=== PATIENT | female | born 1970 | race Caucasian/White ===

== ENCOUNTER 2018-05-06 22:58 | Emergency (ER) | payer SELFPAY ==
--- NOTE | 2018-05-06 23:46 | EDM.PDOC ---
ED HPI GENERAL MEDICAL PROBLEM - General Chief Complaint: General Stated Complaint: MEDICAL CLEARANCE Time Seen by Provider: 05/06/18 23:46 Source of Information: Reports: Patient - History of Present Illness INITIAL COMMENTS - FREE TEXT/NARRATIVE: HISTORY AND PHYSICAL: History of present illness: [Patient presents for medical screening exam She was caught shoplifting today and was out shopping and high-heeled boots however tonight she complains of left foot pain stating she has a known fracture with surgery scheduled next week. She also states she has history of DVT with left calf pain which she is Homans positive on the left No fever nausea vomiting chills sweats ] Review of systems: As per history of present illness and below otherwise all systems reviewed and negative. Past medical history: As per history of present illness and as reviewed below otherwise noncontributory. Surgical history: As per history of present illness and as reviewed below otherwise noncontributory. Social history: No reported history of drug or alcohol abuse. Family history: As per history of present illness and as reviewed below otherwise noncontributory. Physical exam: HEENT: Atraumatic, normocephalic, pupils reactive, negative for conjunctival pallor or scleral icterus, mucous membranes moist, throat clear, neck supple, nontender, trachea midline. Lungs: Clear to auscultation, breath sounds equal bilaterally, chest nontender. Heart: S1S2, regular, negative for clicks, rubs, or JVD. Abdomen: Soft, nondistended, nontender. Negative for masses or hepatosplenomegaly. Negative for costovertebral tenderness. Pelvis: Stable nontender. Genitourinary: Deferred. Rectal: Deferred. Extremities: Atraumatic, negative for cords or calf pain on the right she does however have left calf pain . Neurovascular unremarkable. Neuro: Awake, alert, oriented. Cranial nerves II through XII unremarkable. Cerebellum unremarkable. Motor and sensory unremarkable throughout. Exam nonfocal. 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 left leg Pain Score (Numeric/FACES): 8 - Related Data Allergies Allergy/AdvReac Type Severity Reaction Status Date / Time No Known Allergies Allergy Verified 05/06/18 23:10 Home Meds: Home Meds traMADol [Ultram] 50 mg PO BID 05/06/18 [History] Past Medical History - Past Surgical History GI Surgical History: Reports: Cholecystectomy, Other (See Below) Female Surgical History: Reports: Section Musculoskeletal Surgical History: Reports: Other (See Below) ED ROS GENERAL - Review of Systems Review Of Systems: See Below ED EXAM, GENERAL - Physical Exam Exam: See Below Course - Vital Signs Last Recorded V/S: Last Vital Signs Temp 96.2 F 05/06/18 23:02 Pulse 111 H 05/06/18 23:02 Resp 20 05/06/18 23:02 BP 172/116 H 05/06/18 23:02 Pulse Ox 98 05/06/18 23:02 Departure - Departure Time of Disposition: 00:22 Disposition: Home, Self-Care 01 Condition: Good Clinical Impression: Encounter for medical screening examination - Discharge Information Referrals: PCP,None [Primary Care Provider] - Forms: ED Department Discharge Additional Instructions: The following information is given to patients seen in the emergency department who are being discharged to home. This information is to outline your options for follow-up care. We provide all patients seen in our emergency department with a follow-up referral. The need for follow-up, as well as the timing and circumstances, are variable depending upon the specifics of your emergency department visit. If you don't have a primary care physician on staff, we will provide you with a referral. We always advise you to contact your personal physician following an emergency department visit to inform them of the circumstance of the visit and for follow-up with them and/or the need for any referrals to a consulting specialist. The emergency department will also refer you to a specialist when appropriate. This referral assures that you have the opportunity for follow-up care with a specialist. All of these measure are taken in an effort to provide you with optimal care, which includes your follow-up. Under all circumstances we always encourage you to contact your private physician who remains a resource for coordinating your care. When calling for follow-up care, please make the office aware that this follow-up is from your recent emergency room visit. If for any reason you are refused follow-up, please contact the [facility] emergency department at and asked to speak to the emergency department charge nurse.
--- NOTE | 2018-05-07 00:19 | US ---
INDICATION: left leg pain TECHNIQUE: Ultrasound venous duplex left lower extremity. COMPARISON: None. FINDINGS: The left common femoral, superficial femoral, deep femoral, popliteal, posterior tibial, and greater saphenous veins are fully compressible normal waveforms. The contralateral right common femoral vein is also compressible with normal waveform. No masses evident. IMPRESSION: Normal ultrasound of the left lower extremity veins. Dictated by: Naeem Villagomez MD @ 05/07/2018 00:18:37 (Electronically Signed)
[2018-05-07] MEDS ORDERED: traMADol 50 MG Tab PO ONE (00:36)
[2018-05-07 00:37] VITALS: BP 163/104
== END 2018-05-07 00:42 | disposition home or self-care (01) ==
LOC: MW.ED 22:58
DX: Z13.9 Encounter for screening, unspecified (principal)
CPT/HCPCS: 93971; 99284; A9270; 99282

== ENCOUNTER 2018-09-29 19:58 | Emergency (ER) | payer SELFPAY ==
--- NOTE | 2018-09-29 20:14 | EDM.PDOC ---
ED HPI GENERAL MEDICAL PROBLEM - General Stated Complaint: PT HAS BACK PAIN Time Seen by Provider: 09/29/18 20:02 Source of Information: Reports: Patient History Limitations: Reports: No Limitations - History of Present Illness INITIAL COMMENTS - FREE TEXT/NARRATIVE: HISTORY AND PHYSICAL: History of present illness: Patient is a 48-year-old female presents to the ED today with concern of low back pain 3 days. Patient states she has tried ibuprofen [id number] without relief of symptoms. Patient states that there is a chance she could be . Patient denies any loss or retention of bowel and bladder function. Patient denies saddle anesthesia. Patient denies any trauma or injury to the back and states that she woke up with it being sore. Patient denies fever, chills, chest pain, shortness of breath, or cough. Denies headache, neck stiff ness, change in vision, syncope, or near syncope. Denies nausea, vomiting, abdominal pain, diarrhea, constipation, or dysuria. Has not noted any blood in urine or stool. Patient has been eating and drinking appropriately. Review of systems: As per history of present illness and below otherwise all systems reviewed and negative. Past medical history: As per history of present illness and as reviewed below otherwise noncontributory. Surgical history: As per history of present illness and as reviewed below otherwise noncontributory. Social history: See social history for further information Family history: As per history of present illness and as reviewed below otherwise noncontributory. Physical exam: General: Patient is alert, oriented, and in no acute distress. Patient sitting comfortably on exam table. HEENT: Atraumatic, normocephalic, pupils equal and reactive bilaterally, negative for conjunctival pallor or scleral icterus, mucous membranes moist, TMs normal bilaterally, throat clear, neck supple, nontender, trachea midline. No drooling or trismus noted. No meningeal signs. No hot potato voice noted. Lungs: Clear to auscultation, breath sounds equal bilaterally, chest nontender. Heart: S1S2, regular rate and rhythm without overt murmur Abdomen: Soft, nondistended, nontender. Negative for masses or hepatosplenomegaly. Negative for costovertebral tenderness. Pelvis: Stable nontender. Genitourinary: Deferred. Rectal: Deferred. Skin: Intact, warm, dry. No lesions or rashes noted. Extremities/musculoskeletal: Atraumatic, negative for cords or calf pain. Neurovascular unremarkable. Straight leg raise bilaterally intact. Tip/toe and heel gate intact. Patellar reflex intact. No obvious deformities of the complete spine. No step-offs, point tenderness, or pain to palpation of the complete spine and pint spinous processes. Patient does have full range of motion of the cervical and thoracic spine but does have limited range of motion of thoracic spine due to pain. Neuro: Awake, alert, oriented. Cranial nerves II through XII unremarkable. Cerebellum unremarkable. Motor and sensory unremarkable throughout. Exam nonfocal. Notes: Discussed the importance for follow-up with a primary care provider. Voices understanding and is agreeable to plan of care. Denies any further questions or concerns at this time. Diagnostics: UA, urine hCG, lumbar x-ray Therapeutics: Ibuprofen Prescription: Diclofenac, Bactrim DS Impression: Low back pain, unspecified Urinary Tract Infection Plan: 1. Rest, ice, the affected area. You can apply ice and or heat 15 minutes on, 15 minutes off. 2. Tylenol as directed for pain management or discomfort. Take medication as prescribed. 3. Follow up with the primary care provider as discussed. Return to the ED as needed and as discussed. Definitive disposition and diagnosis as appropriate pending reevaluation and review of above. lower back Pain Score (Numeric/FACES): 10 - Related Data Allergies Allergy/AdvReac Type Severity Reaction Status Date / Time No Known Allergies Allergy Verified 09/29/18 20:25 Home Meds: Home Meds traMADol [Ultram] 50 mg PO BID 05/06/18 [History] Past Medical History HEENT History: Reports: None Cardiovascular History: Reports: Blood Clots/VTE/DVT Respiratory History: Reports: Asthma Gastrointestinal History: Reports: None Genitourinary History: Reports: None PER DIEM REGISTERED NURSE History: Reports: Psychiatric History: Reports: PTSD - Infectious Disease History Infectious Disease History: Reports: Chicken Pox - Past Surgical History GI Surgical History: Reports: Cholecystectomy, Other (See Below) Female Surgical History: Reports: Section Musculoskeletal Surgical History: Reports: Other (See Below) Social & Family History - Family History Family Medical History: Noncontributory - Caffeine Use Caffeine Use: Reports: Coffee, Energy Drinks, Soda ED ROS GENERAL - Review of Systems Review Of Systems: ROS reveals no pertinent complaints other than HPI. ED EXAM, GENERAL - Physical Exam Exam: See Below (see dictation) Course - Vital Signs Last Recorded V/S: Last Vital Signs Temp 36.1 C 09/29/18 20:27 Pulse 101 H 09/29/18 20:27 Resp 18 09/29/18 20:27 BP 166/105 H 09/29/18 20:27 Pulse Ox 94 L 09/29/18 20:27 - Orders/Labs/Meds Orders: Active Orders 24 hr Category Date Time Status CULTURE URINE [RM] Stat Lab 09/29/18 20:37 Received Labs: Laboratory Tests 09/29/18 09/29/18 Range/Units 20:37 20:37 Urine Color YELLOW Urine Appearance SLT CLOUDY Urine pH 5.5 (5.0-8.0) Ur Specific [place] >= 1.030 (1.001-1.035) Urine Protein NEGATIVE (NEGATIVE) mg/dL Urine Glucose (UA) NEGATIVE (NEGATIVE) mg/dL Urine Ketones NEGATIVE (NEGATIVE) mg/dL Urine Occult Blood SMALL H (NEGATIVE) Urine Nitrite POSITIVE H (NEGATIVE) Urine Bilirubin NEGATIVE (NEGATIVE) Urine Urobilinogen 0.2 (<2.0) EU/dL Ur Leukocyte Esterase NEGATIVE (NEGATIVE) Urine RBC NONE SEEN (0-2/HPF) Urine WBC 1-3 (0-5/HPF) Ur Epithelial Cells FEW (NONE-FEW) Urine Bacteria 2+ H (NEGATIVE) Urine Mucus LIGHT (NONE-MOD) Urine HCG, Qual NEGATIVE (NEGATIVE) Meds: Medications Discontinued Medications Generic Name Dose Route Start Last Admin Trade Name [place] PRN Reason Stop Dose Admin Ibuprofen 800 mg 09/29/18 20:33 09/29/18 20:40 Motrin PO 09/29/18 20:34 800 mg ONETIME ONE Administration Ketorolac Tromethamine 60 mg 09/29/18 20:22 09/29/18 20:49 Toradol IM 09/29/18 20:23 Not Given ONETIME ONE Methylprednisolone Sodium Succinate 125 mg 09/29/18 20:22 09/29/18 20:49 Solu-Medrol IM 09/29/18 20:23 Not Given ONETIME ONE Orphenadrine Citrate 60 mg 09/29/18 20:22 09/29/18 20:49 Norflex IM 09/29/18 20:23 Not Given NOW STA Departure - Departure Time of Disposition: 21:51 Disposition: Home, Self-Care 01 Clinical Impression: Low back pain Qualifiers: Chronicity: acute Back pain laterality: unspecified Sciatica presence: without sciatica Qualified Code(s): M54.5 - Low back pain Urinary tract infection Qualifiers: Urinary tract infection type: acute cystitis Hematuria presence: with hematuria Qualified Code(s): N30.01 - Acute cystitis with hematuria - Discharge Information Referrals: PCP,None [Primary Care Provider] - Additional Instructions: The following information is given to patients seen in the emergency department who are being discharged to home. This information is to outline your options for follow-up care. We provide all patients seen in our emergency department with a follow-up referral. The need for follow-up, as well as the timing and circumstances, are variable depending upon the specifics of your emergency department visit. If you don't have a primary care physician on staff, we will provide you with a referral. We always advise you to contact your personal physician following an emergency department visit to inform them of the circumstance of the visit and for follow-up with them and/or the need for any referrals to a consulting specialist. The emergency department will also refer you to a specialist when appropriate. This referral assures that you have the opportunity for follow-up care with a specialist. All of these measure are taken in an effort to provide you with optimal care, which includes your follow-up. Under all circumstances we always encourage you to contact your private physician who remains a resource for coordinating your care. When calling for follow-up care, please make the office aware that this follow-up is from your recent emergency room visit. If for any reason you are refused follow-up, please contact the [facility] Emergency Department at and asked to speak to the emergency department charge nurse. [facility] [address] [place] [id number] [address] 1. Rest, ice, the affected area. You can apply ice and or heat 15 minutes on, 15 minutes off. 2. Tylenol as directed for pain management or discomfort. Take medication as prescribed. 3. Follow up with the primary care provider as discussed. Return to the ED as needed and as discussed. - My Orders Last 24 Hours: My Active Orders 09/29/18 20:37 CULTURE URINE [RM] Stat - Assessment/Plan Last 24 Hours: My Active Orders 09/29/18 20:37 CULTURE URINE [RM] Stat
[2018-09-29] MEDS ORDERED: methylPREDNISolone Sodium Succinate 125 MG/2 ML SDV IM ONE (20:22)
[2018-09-29] MEDS ORDERED: Ketorolac 60 MG/2 ML SDV IM ONE (20:22)
[2018-09-29] MEDS ORDERED: Ibuprofen 800 MG Tab PO ONE (20:33)
[2018-09-29 21:04] VITALS: BP 166/105
--- NOTE | 2018-09-29 21:53 | CR ---
INDICATION: Back pain TECHNIQUE: Lumbar spine 3 view. COMPARISON: None available FINDINGS: Normal lumbar spine alignment. Anatomically aligned facets. Preserved vertebral body heights and disc spaces. Tiny anterior osteophytes at L2-3 and L3-4. No displaced fracture seen. Cholecystectomy clips. IMPRESSION: No acute lumbar spine fracture seen. Minimal, early degenerative changes. Dictated by Chano Singh MD @ 09/29/2018 9:50:45 PM Dictated by: Chano Singh MD @ 09/29/2018 21:52:41 (Electronically Signed)
== END 2018-09-29 22:17 | disposition home or self-care (01) ==
LOC: MW.ED 19:58
DX: M54.5 Low back pain (principal); N30.01 Acute cystitis with hematuria; Z86.718 Personal history of other venous thrombosis and embolism
CPT/HCPCS: 72100; 81001; 81025; 87086; 87088; 87186; 99283; A9270

== ENCOUNTER 2019-11-17 19:02 | Emergency (ER) | payer MEDICAID, OTHER ==
[2019-11-17] MEDS ORDERED: Sodium Chloride 0.9% 1,000 ML IV ONE (19:11)
[2019-11-17] MEDS ORDERED: Ondansetron 4 MG/2 ML SDV IVPUSH ONE (19:27)
[2019-11-17] MEDS ORDERED: HYDROmorphone 1 MG/ML Syringe IVPUSH ONE (19:27)
[2019-11-17 19:54] LABS: BLOOD UREA NITROGEN,BUN 11 mg/dL (7.0-18.0); CARBON DIOXIDE,CO2 24.8 mmol/L (21.0-32.0); CHLORIDE,CL 100 mmol/L (98-107); GLUCOSE RANDOM 98 mg/dL (74-106); LIPASE 42 U/L (73-393); POTASSIUM,K 4.2 mmol/L (3.5-5.1); SODIUM,NA 137 mmol/L (136-145)
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
[2019-11-17] MEDS ORDERED: Ciprofloxacin 500 MG Tab PO ONE (20:25)
[2019-11-17] MEDS ORDERED: Ketorolac 30 MG/ML SDV IVPUSH ONE (20:35)
[2019-11-17] MEDS ORDERED: Iopamidol 755 MG/ML 500 ML Multipack Bottle IVPUSH STA (20:38)
--- NOTE | 2019-11-17 20:48 | CT ---
INDICATION: Right lower quadrant and right flank pain TECHNIQUE: CT abdomen and pelvis without and with 100 cc Isovue 370 contrast. COMPARISON: None FINDINGS: Lower chest: Unremarkable. Liver: Hepatic steatosis. Spleen: Unremarkable. Pancreas: Unremarkable. Gallbladder and bile ducts: S/p cholecystectomy. The common bile duct measures 1.2 cm in diameter, likely due to reservoir effect. Adrenal glands: Unremarkable. Kidneys: Nonobstructive 3 mm right renal stone. Hydronephrosis hydroureter ureteral stone or bladder abnormality. GI tract: Minimal sigmoid colon diverticulosis. Appendix is normal. Vascular structures: Unremarkable. Lymph nodes: Unremarkable. Miscellaneous: Small fat containing umbilical hernia. No free air or significant free fluid. Pelvic Organs: 1.8 cm hypodense lesion in the right adnexa. Bones: Unremarkable for age. IMPRESSION: No hydronephrosis or acute intra-abdominal inflammatory process. Nonobstructive right renal stone. Hypodense lesion in the right adnexa likely represents a physiologic right ovarian cyst. Consider pelvic ultrasound for further evaluation if clinically indicated. Hepatic steatosis. Minimal sigmoid colon diverticulosis. Small fat containing umbilical hernia. Please note that all CT scans at this facility use dose modulation, iterative reconstruction, and/or weight-based dosing when appropriate to reduce radiation dose to as low as reasonably achievable. Dictated by Zandra Jacob MD @ Nov 17 2019 8:39PM Signed by Dr. Zandra Jacob @ Nov 17 2019 8:47PM
[2019-11-17] MEDS ORDERED: Tamsulosin 0.4 MG Cap.ER PO ONE (20:55)
[2019-11-17 21:46] VITALS: BP 163/89; PULSE 75
== END 2019-11-17 21:47 | disposition home or self-care (01) ==
LOC: MW.ED 19:02
DX: N30.01 Acute cystitis with hematuria (principal); N20.0 Calculus of kidney; J45.909 Unspecified asthma, uncomplicated; Z98.890 Other specified postprocedural states; Z90.49 Acquired absence of other specified parts of digestive tract
CPT/HCPCS: 36415; 74178; 80053; 81001; 83690; 85025; 87086; 87088; 87186; 96361; 96374; 96375; 99284; A9270; J1170; J1885; J2405; J7030; Q9967

== ENCOUNTER 2019-11-19 12:43 | Emergency (ER) | payer MEDICAID, OTHER ==
[2019-11-19] MEDS ORDERED: HYDROmorphone 1 MG/ML Syringe IVPUSH ONE (12:55)
[2019-11-19] MEDS ORDERED: Sodium Chloride 0.9% 1,000 ML IV ONE (12:55)
--- NOTE | 2019-11-19 13:01 | EDM.PDOC ---
ED HPI GENERAL MEDICAL PROBLEM - General Chief Complaint: Genitourinary Problem Stated Complaint: KIDNEY STONES Time Seen by Provider: 11/19/19 12:51 Source of Information: Reports: Patient History Limitations: Reports: No Limitations - History of Present Illness INITIAL COMMENTS - FREE TEXT/NARRATIVE: HISTORY AND PHYSICAL: History of present illness: Patient is a 49-year-old female who presents to the emergency room with complaints of right flank pain. This is her second ER visit at our facility and had a previous ER visit in [facility]. Patient states her right flank pain started on 11/13/2019 and she was diagnosed with a kidney stone. Shortly after she was incarcerated at our local assisted. I did see her in our emergency room on 11/17/2019 where I repeated imaging and lab work. CT shows a nonobstructing 3 mm right renal stone. Urine showed positive nitrites with +3 bacteria. She was started on Cipro, Flomax and given a prescription for [place]. Due to being incarcerated she is unable to receive the pain medication. She states the Tylenol and ibuprofen are not helping her pain. Patient states she has been taking the prescribed Flomax and Cipro. She has had nausea and vomiting this morning. EMS was called to transport the patient. They gave Toradol and Zofran prior to arrival. Patient denies any fever, chills, headache, change in vision, syncope or near syncope. Denies any chest pain, back pain, shortness of breath or cough. Denies any diarrhea, constipation or blood in urine or stool. Patient has been eating and drinking appropriately. Review of systems: As per history of present illness and below otherwise all systems reviewed and negative. Past medical history: As per history of present illness and as reviewed below otherwise noncontributory. Surgical history: As per history of present illness and as reviewed below otherwise noncontributory. Social history: See social history for further information Family history: As per history of present illness and as reviewed below otherwise noncontributory. Physical exam: General: Well developed and well nourished. Alert and orientated x 3. Nontoxic in appearance and in no acute distress. Vital signs are stable and have been reviewed by me. Nursing notes were reviewed. HEENT: Atraumatic, normocephalic, pupils equal and reactive bilaterally, negative for conjunctival pallor or scleral icterus, mucous membranes moist, TMs normal bilaterally, throat clear, neck supple, nontender, trachea midline. No drooling or trismus noted. No meningeal signs. No hot potato voice noted. Lungs: Clear to auscultation, breath sounds equal bilaterally, chest nontender. Normal work of breathing, no accessory muscles used. Heart: S1S2, regular rate and rhythm without overt murmur Abdomen: Soft, nondistended, nontender. Negative for masses or hepatosplenomegaly. Right-sided costovertebral tenderness. Skin: Intact, warm, dry. No lesions or rashes noted. Hematologic: No petechiae or purpra. Mucosa appropriate color and normal nail bed color and refill. Extremities: Atraumatic, moves all extremities per self without difficulty or deficits, negative for cords or calf pain. Neurovascular unremarkable. Neuro: Awake, alert, oriented. Cranial nerves II through XII unremarkable. Cerebellum unremarkable. Motor and sensory unremarkable throughout. Exam nonfocal. Psychiatric: Mood and affect are appropriate. Normal thought process. Answering questions appropriately. Notes: Lab work is unremarkable. As she recently had a CT of her abdomen and pelvis, we will not reorder this at this time. Patient is pain-free. Vital signs have improved. I have spoken with the patient/officer and discussed today's findings, in addition to providing specific details for plan of care. The patient is stable for discharge, counseling was provided and we discussed in great detail signs and symptoms that would prompt them to return to the Emergency Department. Medication, follow up and supportive care measures were reviewed and discussed. Voices understanding and is agreeable to plan of care. Denies any further questions or concerns at this time. Diagnostics: CBC, CMP Therapeutics: IV fluids, Dilaudid Prescription: None Impression: Kidney Stone Plan: 1. Today your lab work is unremarkable. 2. Continue taking your previously prescribed medications. Follow-up with urology as we discussed. 3. We encourage you to follow up with your primary care provider and/or recommended specialist in the next few days for re-evaluation and further care/management. If your symptoms should worsen, new symptoms develop or any of the signs and symptoms we discussed should arise please return to the emergency room or call 911 (if needed). Definitive disposition and diagnosis as appropriate pending reevaluation and review of above. LEFT BACK Pain Score (Numeric/FACES): 10 - Related Data Allergies Allergy/AdvReac Type Severity Reaction Status Date / Time No Known Allergies Allergy Verified 11/19/19 13:16 Home Meds: Home Meds Acetaminophen/HYDROcodone [[place] 325-5 MG] 1 tab PO ONETIME PRN #10 tablet 11/17/19 [Rx] Ciprofloxacin HCl [Cipro] 500 mg PO BID 5 Days #10 tablet 11/17/19 [Rx] Tamsulosin [Tamsulosin 24 Hr] 0.4 mg PO DAILY #3 cap.er 11/17/19 [Rx] Past Medical History HEENT History: Reports: None Cardiovascular History: Reports: Blood Clots/VTE/DVT Respiratory History: Reports: Asthma Gastrointestinal History: Reports: None Genitourinary History: Reports: None 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: Neurological History: Reports: None Psychiatric History: Reports: PTSD Hematologic History: Reports: None Dermatologic History: Reports: None - Infectious Disease History Infectious Disease History: Reports: Chicken Pox - Past Surgical History Cardiovascular Surgical History: Reports: None Respiratory Surgical History: Reports: None GI Surgical History: Reports: Cholecystectomy, Other (See Below) Other GI Surgeries/Procedures: colon Female Surgical History: Reports: Section Social & Family History - Family History Family Medical History: Noncontributory - Caffeine Use Caffeine Use: Reports: Coffee ED ROS GENERAL - Review of Systems Review Of Systems: Comprehensive ROS is negative, except as noted in HPI. ED EXAM, RENAL/ - Physical Exam Exam: See Below (See dictation) Course - Vital Signs Last Recorded V/S: Last Vital Signs Temp 96.1 F L 11/19/19 13:11 Pulse 140 H 11/19/19 13:11 Resp 16 11/19/19 13:11 BP 141/109 H 11/19/19 13:11 Pulse Ox 96 11/19/19 13:11 - Orders/Labs/Meds Labs: Laboratory Tests 11/19/19 11/19/19 Range/Units 13:27 13:27 WBC 8.46 (4.0-11.0) K/uL RBC 5.20 (4.30-5.90) M/uL Hgb 16.2 H (12.0-16.0) g/dL Hct 48.0 H (36.0-46.0) % MCV 92.3 (80.0-98.0) fL MCH 31.2 (27.0-32.0) pg MCHC 33.8 (31.0-37.0) g/dL RDW Std Deviation 43.7 (28.0-62.0) fl RDW Coeff of Arben 13 (11.0-15.0) % Plt Count 212 (150-400) K/uL MPV 10.90 (7.40-12.00) fL Neut % (Auto) 73.8 (48.0-80.0) % Lymph % (Auto) 17.1 (16.0-40.0) % [place] % (Auto) 8.2 (0.0-15.0) % Eos % (Auto) 0.7 (0.0-7.0) % Baso % (Auto) 0.2 (0.0-1.5) % Neut # (Auto) 6.2 H (1.4-5.7) K/uL Lymph # (Auto) 1.5 (0.6-2.4) K/uL [place] # (Auto) 0.7 (0.0-0.8) K/uL Eos # (Auto) 0.1 (0.0-0.7) K/uL Baso # (Auto) 0.0 (0.0-0.1) K/uL Nucleated RBC % 0.0 /100WBC Nucleated RBCs # 0 K/uL Sodium 136 (136-145) mmol/L Potassium 4.0 (3.5-5.1) mmol/L Chloride 102 (98-107) mmol/L Carbon Dioxide 21.0 (21.0-32.0) mmol/L BUN 13 (7.0-18.0) mg/dL Creatinine 0.9 (0.6-1.0) mg/dL Est Cr Clr Drug Dosing 67.29 mL/min Estimated GFR (MDRD) > 60.0 ml/min Glucose 111 H (74-106) mg/dL Calcium 9.9 (8.5-10.1) mg/dL Total Bilirubin 0.3 (0.2-1.0) mg/dL AST 50 H (15-37) IU/L ALT 80 H (14-63) IU/L Alkaline Phosphatase 96 (46-116) U/L Total Protein 7.7 (6.4-8.2) g/dL Albumin 4.1 (3.4-5.0) g/dL Globulin 3.6 (2.6-4.0) g/dL Albumin/Globulin Ratio 1.1 (0.9-1.6) Meds: Medications Discontinued Medications Generic Name Dose Route Start Last Admin Trade Name Mayi PRN Reason Stop Dose Admin Hydromorphone HCl 1 mg 11/19/19 12:55 11/19/19 13:16 Dilaudid IVPUSH 11/19/19 12:56 1 mg ONETIME ONE Administration Sodium Chloride 1,000 mls @ 999 mls/hr 11/19/19 12:55 11/19/19 13:16 Normal Saline IV 11/19/19 13:55 999 mls/hr STAT ONE Administration Departure - Departure Time of Disposition: 14:22 Disposition: Home, Self-Care 01 Clinical Impression: Kidney stone on right side - Discharge Information Instructions: Kidney Stones, Geag-pe-Read Referrals: Adriel Good [Primary Care Provider] - Forms: ED Department Discharge Additional Instructions: The following information is given to patients seen in the emergency department who are being discharged to home. This information is to outline your options for follow-up care. We provide all patients seen in our emergency department with a follow-up referral. The need for follow-up, as well as the timing and circumstances, are variable depending upon the specifics of your emergency department visit. If you don't have a primary care physician on staff, we will provide you with a referral. We always advise you to contact your personal physician following an emergency department visit to inform them of the circumstance of the visit and for follow-up with them and/or the need for any referrals to a consulting specialist. The emergency department will also refer you to a specialist when appropriate. This referral assures that you have the opportunity for follow-up care with a specialist. All of these measure are taken in an effort to provide you with optimal care, which includes your follow-up. Under all circumstances we always encourage you to contact your private physician who remains a resource for coordinating your care. When calling for follow-up care, please make the office aware that this follow-up is from your recent emergency room visit. If for any reason you are refused follow-up, please contact the Emergency Department at and asked to speak to the emergency department charge nurse. Primary Care [address] [place] [address] [facility] [address] [place] [phone] Thank you for choosing the [facility] emergency department in [place] for your medical needs today. It was a pleasure caring for you. Today you were seen in the emergency department for kidney stone pain Sepsis Event Note (ED) - Focused Exam Vital Signs: Vital Signs Temp Pulse Resp BP Pulse Ox 11/19/19 13:11 96.1 F L 140 H 16 141/109 H 96
[2019-11-19 13:16] VITALS: BP 141/109; PULSE 140
[2019-11-19 14:01] LABS: BLOOD UREA NITROGEN,BUN 13 mg/dL (7.0-18.0); CHLORIDE,CL 102 mmol/L (98-107); GLUCOSE RANDOM 111 mg/dL (74-106); SODIUM,NA 136 mmol/L (136-145)
== END 2019-11-19 14:25 ==
LOC: MW.ED 12:43
DX: N20.0 Calculus of kidney (principal); J45.909 Unspecified asthma, uncomplicated; Z90.49 Acquired absence of other specified parts of digestive tract; Z98.890 Other specified postprocedural states
CPT/HCPCS: 36415; 80053; 85025; 96361; 96374; 99284; J1170; J7030; 99283

== ENCOUNTER 2020-06-01 23:19 | Emergency (ER) | payer MEDICAID ==
[2020-06-02 00:17] VITALS: BP 149/106; PULSE 113
== END 2020-06-01 23:45 | disposition left against medical advice (07) ==
LOC: MW.ED 23:19
DX: Z53.21 Procedure and treatment not carried out due to patient leaving prior to being seen by health care provider (principal)

== ENCOUNTER 2020-11-04 22:01 | Emergency (ER) | payer MEDICAID, OTHER ==
--- NOTE | 2020-11-04 22:25 | EDM.PDOC ---
ED HPI GENERAL MEDICAL PROBLEM - General Chief Complaint: General Stated Complaint: MEDICAL CLEARANCE, POSSIBLE BLOOD CLOT Time Seen by Provider: 11/04/20 22:17 - History of Present Illness INITIAL COMMENTS - FREE TEXT/NARRATIVE: 50-year-old female presents with need of medical clearance. She had an injury to her head about 2 months ago with a laceration and she was told she has a follow-up appointment upcoming to make sure that there is no further blood clot in the area of injury that needs to be removed patient has no symptoms. There is no new trauma or vomiting or change in thinking. 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: Neurological History: Reports: None Psychiatric History: Reports: PTSD Hematologic History: Reports: None Dermatologic History: Reports: None - Infectious Disease History Infectious Disease History: Reports: Chicken Pox - Past Surgical History HEENT Surgical History: Reports: Tonsillectomy Cardiovascular Surgical History: Reports: None Respiratory Surgical History: Reports: None GI Surgical History: Reports: Cholecystectomy, Other (See Below) Other GI Surgeries/Procedures: colon Female Surgical History: Reports: Section Musculoskeletal Surgical History: Reports: Other (See Below) Other Musculoskeletal Surgeries/Procedures:: fx tail bone Social & Family History - Family History Family Medical History: No Pertinent Family History - Tobacco Use Tobacco Use Status *Q: Current Every Day Tobacco User Years of Tobacco use: 30 Packs/Tins Daily: 0.5 - Caffeine Use Caffeine Use: Reports: Coffee - Recreational Drug Use Recreational Drug Use: No ED ROS GENERAL - Review of Systems Review Of Systems: See Below Constitutional: Denies: Fever Skin: Reports: Rash Neurological: Denies: Headache ED EXAM, GENERAL - Physical Exam Exam: See Below Free Text/Narrative:: CONSTITUTIONAL: well appearing in no acute distress SKIN: Well-healing scar without any erythema warmth or tenderness HENT: Normocephalic, atraumatic, NECK: normal range of motion PULMONARY: normal chest rise and fall, no respiratory distress or stridor NEUROLOGIC: normal speech, moves all extremities, grossly non-focal MUSCULOSKELETAL: no gross deformities, atraumatic PSYCHIATRIC: normal mood and affect Course - Vital Signs Last Recorded V/S: Last Vital Signs Temp 37.1 C 11/04/20 22:07 Pulse 88 11/04/20 22:07 Resp 18 11/04/20 22:07 BP 151/99 H 11/04/20 22:07 Pulse Ox 98 11/04/20 22:07 Departure - Departure Time of Disposition: 22:21 Disposition: Home, Self-Care 01 Condition: Good Clinical Impression: Medical clearance for incarceration - Discharge Information Instructions: Medical Screening Exam [facility] - Additional Instructions: Return for vomiting, change in thinking, redness/warmth/pain to site of old laceration Sepsis Event Note (ED) - Evaluation Sepsis Screening Result: No Definite Risk - Focused Exam Vital Signs: Vital Signs Temp Pulse Resp BP Pulse Ox 11/04/20 22:07 37.1 C 88 18 151/99 H 98
[2020-11-04 22:49] VITALS: BP 148/96; PULSE 83
== END 2020-11-04 22:49 | disposition home or self-care (01) ==
LOC: MW.ED 22:01
DX: Z02.89 Encounter for other administrative examinations (principal); J45.909 Unspecified asthma, uncomplicated; Z72.0 Tobacco use
CPT/HCPCS: 99282

== ENCOUNTER 2021-12-27 07:00 | Emergency (ER) | payer OTHER ==
[2021-12-27] MEDS ORDERED: Ketorolac 30 MG/ML SDV IM ONE (07:23)
[2021-12-27] MEDS ORDERED: Ibuprofen 800 MG Tab PO ONE (07:31)
[2021-12-27 07:53] LABS: POTASSIUM,K 4.5 mmol/L (3.5-5.1)
[2021-12-27 08:43] VITALS: BP 141/101; PULSE 89
== END 2021-12-27 08:42 | disposition home or self-care (01) ==
LOC: MW.ED 07:00
DX: G89.18 Other acute postprocedural pain (principal); R10.9 Unspecified abdominal pain; I10 Essential (primary) hypertension; J45.909 Unspecified asthma, uncomplicated; Z90.49 Acquired absence of other specified parts of digestive tract
CPT/HCPCS: 36415; 80048; 85025; 99284; A9270

== ENCOUNTER 2022-07-20 22:24 | Emergency (ER) | payer MEDICAID ==
[2022-07-20 23:39] VITALS: BP 136/87; PULSE 91
== END 2022-07-20 23:38 | disposition home or self-care (01) ==
LOC: MW.ED 22:24
DX: S62.356A Nondisplaced fracture of shaft of fifth metacarpal bone, right hand, initial encounter for closed fracture (principal); W22.8XXA Striking against or struck by other objects, initial encounter; J45.909 Unspecified asthma, uncomplicated; I10 Essential (primary) hypertension
CPT/HCPCS: 29125; 73110-26-RT; 73110-RT; 73130-26-RT; 73130-RT; 99283